=== PATIENT | male | born 1995 | race Caucasian/White ===

== ENCOUNTER 2016-10-21 21:41 | Emergency (ER) | payer SELFPAY ==
[2016-10-21] MEDS ORDERED: ACETAMINOPHEN 500 MG TABLET PO ONE (22:17)
[2016-10-21 22:24] VITALS: TEMP 102.2
[2016-10-21] MEDS ORDERED: Penicillin V Potassium Tab 500 MG TAB PO SCH (22:30)
[2016-10-21 23:38] VITALS: RESP 18
--- NOTE | 2016-10-22 04:53 | PDOC ---
General Adult HPI - General Chief Complaint: General Medical Stated Complaint: sore throat and fever for 2 days Date Seen by Provider: 10/21/16 Time Seen by Provider: 21:40 Source: POSITIVE: Patient Exam Limitations: POSITIVE: No limitations Nurse's Notes Reviewed & Considered: Yes - History of Present Illness Initial Comment: The patient is a 21-year-old male. He states that for the past 2 days he has had a prominent sore throat and fever. Some associated headaches. He states his voice is been muffled and he has some pain with swallowing. He has no known allergies. Have you received a tetanus shot in the past 10 years?: Yes Body Location Affected: REPORTS: Head (Headache), Other (Sore throat) Timing: REPORTS: Gradual, Getting Worse Duration: >24 hours (Approximately 2 days) Severity: Moderate Quality: REPORTS: "Pain" Context: DENIES: None, Sitting, Standing, Activity, Emotional stress, Coughing, Recent Trauma, Recent Surgery, Sleep, Rest, Lifting, Turning, Bending, Fall, Near Fall, Other Modifying Factors: improves with: Nothing Similar Symptoms Previously: No Recent Care Received: REPORTS: Denies - Patient Home Medications Home Medications: Home Medications NK [No Home Medications Reported] 10/21/16 - Patient Allergies Allergies/Adverse Reactions: Allergies Allergy/AdvReac Type Severity Reaction Status Date / Time No Known Allergies Allergy Verified 03/28/16 21:37 Past Medical History - heen HEENT History: Denies History, Other (please comment) Additional HEENT History: CHRONIC EAR INFECTIONS A CHILD WITH TUBE PLACEMENT Cardiovascular History: Denies History Respiratory History: Denies History Gastrointestinal History: Denies History Genitourinary History: Denies History Endocrine History: Denies History Musculoskeletal History: Denies History Prosthesis or Implant: No Neurological History: Denies History Blood Disorders: Denies History Psychiatric History: Denies History History of Sexually Transmitted Diseases: No Male Reproductive History: Denies History Cancer History: Denies History In Past Year Been Physically Harmed or Verbally Threatened: No History of MDRO: No History of Other Communicable Diseases: No History of Exposure to Communicable Disease: No Tobacco Use: Never Smoker Alcohol Use: None Substance Use Type: None Previous Surgical History: Yes Type / Date of Surgery: BILATERAL EAR TUBES Anesthesia Reactions: No Significant Family History: No pertinent family hx Past Medical History Reviewed: Reviewed - No Changes ROS - Limitations ROS Limitations: No Limitations Constitution: REPORTS: Fever Cardiovascular: REPORTS: Denies Cardiac Symptoms Respiratory: REPORTS: Denies Resp Symptoms Neurological: REPORTS: Denies Neuro Symptoms Gastrointestinal: REPORTS: Denies GI Symptoms Endocrine: REPORTS: Denies Symptoms Musculoskeletal: REPORTS: Denies MS Symptoms Genitourinary: REPORTS: Denies Symptoms Eyes: REPORTS: Denies Symptoms ENT: REPORTS: Sore Throat Skin: REPORTS: Denies Skin Symptoms Lympathic: REPORTS: Denies Lympathic Symptoms Immunologic: POSITIVE: Denies Symptoms Psychiatric: POSITIVE: Denies Psych Symptoms General Adult Exam - General Appearance General Appearance: POSITIVE: Alert, Cooperative, No Acute Distress, No Evidence of Trauma - HEENT HEENT: POSITIVE: Head Inspection Nml, Eyes Inspection Nml, Ears Inspection Nml, Nose Inspection Nml, Oral/Dental Inspect. Nml, PERRL, EOMI, Pharyngeal Erythema (Prominent pharyngeal erythema), Pharyngeal Exudate. NEGATIVE: Pharynx Inspect. Nml - Pupils Pupil Size: 4 mm: Bilateral (PERRLA) - Neck Neck: POSITIVE: Normal Inspection, Thyroid Normal - Respiratory Respiratory: POSITIVE: No Respiratory Distress, Breath Sounds Normal, Chest Non- Tender - Cardiovascular Cardiovascular: POSITIVE: Regular Rate & Rhythm, No Murmur, No Gallop, PMI Normal Peripheral Pulses: Radial (R): 2+, Radial (L): 2+ - Abdomen Abdomen: Soft: (All Quadrants), Normal Bowel Sounds: (All Quadrants), Denies Tenderness: (All Quadrants), No Splenomegaly: (All Quadrants), No Hepatomegaly: (All Quadrants), No Guarding: (All Quadrants), No Rebound: (All Quadrants), No Palpable Pulse: (All Quadrants), No Palpabale Mass: (All Quadrants), No Distention: (All Quadrants), No Rigidity: (All Quadrants) - Back Back: POSITIVE: Normal Inspection - Skin Skin: POSITIVE: Normal Color, Warm, Dry, No Rash - Extremities Extremity: Non-Tender: (All Extremities), Normal ROM: (All Extremities), Normal Inspection: (All Extremities) - Neurological / Psychological Neurological: 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, 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 As Tested, Motor Normal, Sensation Normal, 5, 6 Images - Dental Dental: 1 - Pharyngeal erythema with some exudate General Adult Progress - Results Reviewed by me Lab Results Reviewed: Yes (strep screen positive; influenza negative) - Patient's Progress Pain Medication Addressed: POSITIVE: Yes (Recommended Advil or Tylenol) School/Work Release Addressed: POSITIVE: Yes (No work until asymptomatic for a day) Re-Examine Time: 22:20 Status: POSITIVE: Unchanged Antibiotics Given: Yes (Pen-Vee K 500 mg 4 times a day for 10 days) - Consult Counseled: POSITIVE: Patient, Family (), RE: Lab Results, RE: DX, RE: Need for F/U Patient Care Time - Estimated PCT Patient Care Time (In Minutes): 20 Vital Signs - Recent Vital Signs Vital Signs: Vital Signs (Last 8 hours) Temp Pulse Resp BP Pulse Ox 10/21/16 22:23 102.2 F H 10/21/16 21:41 102.2 F H 122 H 18 140/89 92 - VS Reviewed Vital Signs Reviewed: Yes Discharge Clinical Impression: Strep pharyngitis Discharge Disposition: Discharged to Home Condition: Good Patient Instructions Given at Discharge: Strep Throat (ED) Additional Instructions: Your test was positive for strep throat. Please take one penicillin tablet every 6 hours, for a total of 4 tablets daily, for 10 days. Tylenol for discomfort and fever. Return anytime if condition worsens. Avoid coughing and sneezing around other people and avoid kissing, sharing drinking glasses, etc. Follow-up with your primary care provider. Follow Up With: NONE,NONE [Primary Care Provider] - (Instructions as above. Return here anytime if condition worsens in any way.)
== END 2016-10-21 22:35 | disposition home or self-care (01) ==
LOC: ER 21:41
DX: J02.0 Streptococcal pharyngitis (principal); R51 Headache; R50.9 Fever, unspecified
CPT/HCPCS: 87802; 87804; 99282

== ENCOUNTER 2017-04-27 19:05 | Emergency (ER) | payer OTHER ==
[2017-04-27 19:24] VITALS: RESP 20; TEMP 96.8
[2017-04-27] MEDS ORDERED: HYDROcodone-APAP 5 MG -325 MG TABLET PO ONE ×3 (19:30→19:34)
--- NOTE | 2017-04-27 19:31 | PDOC ---
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 He felt a pop, increased pain, and swelling. He was able to ambulate with great difficulty initially. 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 He states that he is barely able to bear weight. He denies any other injury pattern, no other symptoms. Have you received a tetanus shot in the past 10 years?: Yes - Patient Allergies Allergies/Adverse Reactions: Allergies Allergy/AdvReac Type Severity Reaction Status Date / Time No Known Allergies Allergy Verified 04/27/17 19:13 - Patient Home Medications Home Medications: Home Medications NK [No Home Medications Reported] 10/21/16 Past Medical History - heen HEENT History: Denies History, Other (please comment) Additional HEENT History: CHRONIC EAR INFECTIONS A CHILD WITH TUBE PLACEMENT Cardiovascular History: Denies History Respiratory History: Denies History Gastrointestinal History: Denies History Genitourinary History: Denies History Endocrine History: Denies History Musculoskeletal History: Denies History Prosthesis or Implant: No Neurological History: Denies History Blood Disorders: Denies History Psychiatric History: Denies History History of Sexually Transmitted Diseases: No Male Reproductive History: Denies History Cancer History: Denies History In Past Year Been Physically Harmed or Verbally Threatened: No History of MDRO: No History of Other Communicable Diseases: No History of Exposure to Communicable Disease: No Tobacco Use: Never Smoker Alcohol Use: Occasionally Substance Use Type: None Previous Surgical History: Yes Type / Date of Surgery: BILATERAL EAR TUBES Anesthesia Reactions: No Significant Family History: No pertinent family hx ROS - Limitations ROS Limitations: No Limitations Constitution: REPORTS: Denies Symptoms Cardiovascular: REPORTS: Denies Cardiac Symptoms Respiratory: REPORTS: Denies Resp Symptoms Neurological: REPORTS: Denies Neuro Symptoms Gastrointestinal: REPORTS: Denies GI Symptoms Endocrine: REPORTS: Denies Symptoms Musculoskeletal: REPORTS: Joint Pain (Left ankle), Lower Extremity Swelling ( Left ankle) Genitourinary: REPORTS: Denies Symptoms Eyes: REPORTS: Denies Symptoms ENT: REPORTS: Denies Symptoms Skin: REPORTS: Denies Skin Symptoms Lympathic: REPORTS: Denies Lympathic Symptoms Immunologic: POSITIVE: Denies Symptoms Psychiatric: POSITIVE: Denies Psych Symptoms Foot / Ankle Exam - General Appearance General Appearance: POSITIVE: Alert, Cooperative, No Acute Distress - Extremities Foot: POSITIVE: Swelling, Limited ROM d/t Pain Ankle: POSITIVE: Soft-Tissue Tenderness (left ankle), Bony Tenderness, Swelling , Ecchymosis Gait: POSITIVE: Limited by Pain Neuro: POSITIVE: Sensation Normal, Motor Normal Vascular: POSITIVE: No Vascular Compromise, Full Pulses, Equal Pulses Tendons: POSITIVE: Tendon Function Normal Skin: POSITIVE: Warm, Dry - HEENT HEENT: POSITIVE: Head Inspection Nml, Eyes Inspection Nml, Ears Inspection Nml, Nose Inspection Nml, Oral/Dental Inspect. Nml, Pharynx Inspect. Nml, PERRL, EOMI - Neck / Back Neck / Back: Normal Inspection - Respiratory / CVS Respiratory / CVS: POSITIVE: Chest Non-Tender, No Respiratory Distress, Heart Sounds Normal, Regular Rate/Rhythm, Breath Sounds Normal - Abdomen Abdomen: Soft: (All Quadrants), Normal Bowel Sounds: (All Quadrants), Denies Tenderness: (All Quadrants), No Splenomegaly: (All Quadrants), No Hepatomegaly: (All Quadrants), No Guarding: (All Quadrants), No Rebound: (All Quadrants), No Palpable Pulse: (All Quadrants), No Palpabale Mass: (All Quadrants), No Distention: (All Quadrants), No Rigidity: (All Quadrants) Foot / Ankle Progress - Results Reviewed by me Pain Medication Addressed: POSITIVE: Yes Xrays/CTs/US Reviewed by me: Yes Discussed with Radiologist: No Radiology Results: POSITIVE: Left, Ankle, No Fracture, Normal Alignment, No Foreign Body - Patient's Progress Re-Examine Time:: 19:56 Status: POSITIVE: Improved MDM / ED Course: Patient was examined, x-rays were obtained, and he received a 5/325 mg tablet of [place]. Findings: X-ray of his left ankle, as interpreted by me, shows no acute osseous abnormalities. Assessment: Left ankle sprain. Plan: Discharge home, ice packs, elevation, bear weight as tolerated, crutches as needed, ankle brace. Follow-up with orthopedics in 7-10 days if no improvement. - Consult Counseled: POSITIVE: Patient, Family, RE: Radiology Results, RE: DX, RE: Need for F/U Patient Care Time - Estimated PCT Patient Care Time (In Minutes): 15 Vital Signs - Recent Vital Signs Vital Signs: Vital Signs (Last 8 hours) Temp Pulse Resp BP Pulse Ox 04/27/17 19:08 96.8 F 90 20 138/75 96 - VS Reviewed Vital Signs Reviewed: Yes Discharge Clinical Impression: Sprain of ankle Discharge Disposition: Discharged to Home Condition: Good Patient Instructions Given at Discharge: Ankle Sprain (ED)
[2017-04-27] MEDS ORDERED: HYDROcodone-APAP 5 MG -325 MG TABLET PO SCH (20:15)
--- NOTE | 2017-04-27 21:24 | DI ---
LEFT ANKLE, 04/27/2017 7:26 PM: Clinical History: Injury. The patient fell and has pain and edema. Previous Exam: None at this facility. 3 views are submitted. There is soft tissue swelling over the lateral malleolus. No fracture is ident ified. There is very mild widening of the lateral aspect of the ankle mortise suggesting there has be en significant attenuation or even rupture of the talofibular ligaments. There is no ankle effusion. Reading: Soft tissue swelling laterally with there are mild widening of the lateral ankle mortise suggesting a ttenuation or rupture of the talofibular ligaments. No fractures are identified.
== END 2017-04-27 20:17 | disposition home or self-care (01) ==
LOC: ER 19:05
DX: S93.402A Sprain of unspecified ligament of left ankle, initial encounter (principal); W10.8XXA Fall (on) (from) other stairs and steps, initial encounter; Y99.0 Civilian activity done for income or pay
CPT/HCPCS: 73610; 99282